=== PATIENT | female | born 1990 | race Caucasian/White ===

== ENCOUNTER 2018-08-11 02:30 | Emergency (ER) | payer BC, OTHER ==
--- NOTE | 2018-08-11 02:39 | EDPHY ---
H & P Time Seen by Provider: 08/11/18 02:38 HPI/ROS: HPI CHIEF COMPLAINT: Right Flank Pain, Sudden in onset, vomiting. HISTORY OF PRESENT ILLNESS: 27-year-old female, otherwise healthy without any significant medical history presents emergency room with right flank pain that woke her up to sleep around 2:00 a.m. Or 45s min ago. She vomited multiple times she describes pain as sharp stabbing right flank radiating to her right abdomen. She denies any chest pain or shortness of breath. Denies diarrhea. States she vomited nonbilious nonbloody approximately 4-5 times. Describes the pain as sharp stabbing. Currently 10/05. Patient denies history of this. Denies being . States she had a cheeseburger around 7:00 p.m. last night. Patient denies fever, chest pain or sob, denies diarrhea. Past Medical History:Denies Past Surgical History: Denies Social History: Smokes Tobacco, or Drugs, occasional Alcohol use. Works for [employer]. Family History:non Contributory. ROS REVIEW OF SYSTEMS: 10 Systems were reviewed and negative with the exception of the elements mentioned in the history of present illness. Exam Constitutional triage nursing summary reviewed, vital signs reviewed, awake/ alert. Eyes normal conjunctivae and sclera, EOMI, PERRLA. HENT normal inspection, atraumatic, moist mucus membranes, no epistaxis, neck supple/ no meningismus, no raccoon eyes. Respiratory clear to auscultation bilaterally, normal breath sounds, no respiratory distress, no wheezing. Cardiovascular rate normal, regular rhythm, no murmur, no edema, distal pulses normal. Gastrointestinal mild ttp right flank on exam, and RLQ pain, no rebound, no guarding, normal bowel sounds, no distension, no pulsatile mass. Genitourinary mild ttp right sided cva pain on exam. Musculoskeletal no midline vertebral tenderness, full range of motion, no calf swelling, no tenderness of extremities, no meningismus, good pulses, neurovascularly intact. Skin pink, warm, & dry, no rash, skin atraumatic. Neurologic awake, alert and oriented x 3, AAOx3, moves all 4 extremities equally, motor intact, sensory intact, CN II-XII intact, normal cerebellar, normal vision, normal speech. Psychiatric normal mood/affect. Heme/Lymph/Immune no lymphadenopathy. Differential Diagnosis: Differential diagnosis includes but is not limited to and in no particular order: Bowel obstruction, appendicitis, gallbladder disease, diverticulitis, colitis, enteritis, perforated viscus, gastritis, GERD , esophagitis, urinary tract infection, pyelonephritis, kidney stones Medical Decision Making: Plan for this patient IV establishment IV fluid bolus , IV Toradol 15 mg for pain control, basic labs including CBC, CMP, check urinalysis, urine , CT scan abdomen pelvis with IV contrast. Re-evaluation: 0407AM: Patient re-evaluated this time pain is currently 2/10 [address]. Resting comfortably. CT scan results obtained, this was faxed me it [facility] at 3:57 a.m.. This shows significant gallbladder distension. Mild intrahepatic ductal prominence. Moderate colonic stool throughout correlate for constipation Additionally there is a 5 mm right lower lobe lung nodule. Given the patient has gallbladder distension will proceed with right upper quadrant ultrasound. 4:08 a.m. Plan for 2nd L fluid, ultrasound gallbladder, lipase. 0541AM: Ultrasound obtained of the right upper quadrant due to distended gallbladder seen on CT scan this shows unremarkable right upper quadrant ultrasound. Specifically the gallbladder is moderately distended no shadowing stones or evidence of inflammation this is a negative sonographic Barnett sign common bile duct measures 5 mm in width. Faxed me by [facility] 5:32 a.m.. Labs reviewed. Lipase normal CMP ok CBC ok UA dip negative Urine preg negative 0542AM: Patient re-evaluated this time resting comfortably no abdominal pain. CT scan did show constipation this could be a cause of her abdominal pain. Additionally pulmonary lung nodule discussed with the patient she should follow up with her primary care doctor. Given that she smokes, Recommend close follow up. She understands this. I do recommend refrain from eating spicy fatty greasy foods. The next 2 weeks. Additionally MiraLax for constipation. Additionally we discussed return precautions return to the emergency room if there is worsening abdominal pain, fever, vomiting. She is comfortable this plan. Source: Patient - Medical/Surgical History Hx Asthma: No Hx Chronic Respiratory Disease: No Hx Diabetes: No Hx Cardiac Disease: No Hx Renal Disease: No Hx Cirrhosis: No Hx Alcoholism: No Hx HIV/AIDS: No Hx Splenectomy or Spleen Trauma: No Other PMH: No surgeries [facility] PCP [facility]. No Flu Constitutional: Initial Vital Signs Temperature (C) 36.6 C 08/11/18 02:39 Heart Rate 90 08/11/18 02:39 Respiratory Rate 18 08/11/18 02:39 Blood Pressure 146/94 H 08/11/18 02:39 O2 Sat (%) 92 08/11/18 02:39 O2 Delivery Mode Room Air Allergies/Adverse Reactions: No Known Allergies Allergy (Verified 08/11/18 02:41) Home Medications: Medication Instructions Recorded 08/11/18 Medical Decision Making - Data Points Medications Given: Discontinued Medications Sodium Chloride (Ns) 1,000 mls @ 0 mls/hr IV ONCE ONE PRN Reason: Wide Open Stop: 08/11/18 02:45 Last Admin: 08/11/18 02:54 Dose: 1,000 mls Sodium Chloride (Ns) 1,000 mls @ 0 mls/hr IV ONCE ONE PRN Reason: Wide Open Stop: 08/11/18 04:07 Last Admin: 08/11/18 04:15 Dose: 1,000 mls Ketorolac Tromethamine (Toradol) 15 mg IVP EDNOW ONE Stop: 08/11/18 02:45 Last Admin: 08/11/18 02:51 Dose: 15 mg Point of Care Test Results: CBC CBC Collection Date 08/11/18 CBC Collection Time 02:42 WBC 5.52 RBC 4.53 HGB 15.0 HCT 42.4 PLT 305 Neut # 2.70 Neut 48.8 LYMPH # 2.25 LYMPH 40.8 MCV 93.6 Chemistry 08/11/18 02:45 POC Sodium 145 mEq/L mEq/L (135-145) POC Potassium 4.1 mEq/L mEq/L (3.3-5.0) POC Chloride 107.0 mEq/L mEq/L (97-110) POC Total CO2 25 mEq/L mEq/L (22-31) POC BUN 17 mg/dL mg/dL (7-23) POC Creatinine 0.7 mg/dL mg/dL (0.6-1.0) POC Glucose 103 mg/dL H mg/dL (70-100) POC Calcium 9.6 mg/dL mg/dL (8.5-10.4) POC Total Bilirubin 0.7 mg/dL mg/dL (0.1-1.4) POC AST 74 IU/L H IU/L (14-46) POC ALT 43 IU/L IU/L (9-52) POC Alk Phosphatase 112 IU/L IU/L (38-126) POC Total Protein 7.2 g/dL g/dL (6.3-8.2) POC Albumin 3.7 g/dL g/dL (3.5-5.0) Urine Collection Date 08/11/18 Collection Time 03:20 HCG Results Negative Urine Dip Collection Date 08/11/18 Collection Time 03:20 Specific [place] (1.002-1.030) 1.020 PH (5.0-7.5) 6.0 Leukocytes (Negative) Negative Nitrites (Negative) Negative Protein (Negative) Negative Glucose (Negative) Negative Ketones (Negative) Negative Urobilnogen (0.2-1.0 EU) 0.2 Bilirubin (Negative) Negative Blood (Negative) Negative Departure - Departure Disposition: Home, Routine, Self-Care Clinical Impression: Abdominal pain Condition: Good Instructions: Constipation (ED), Acute Abdominal Pain (ED), Pulmonary Nodules ( ED) Additional Instructions: 1. [place] diet no spicy fatty greasy foods. 2. Return to the emergency room if there is worsening abdominal pain, fever, vomiting 3. Follow up with her primary care doctor about your lung nodule. (especially since you smoke), Recommend close follow up with your doctor. 4. rest 5. Increase your fruits and veggies. 6. Miralax over the counter for constipation. 7. Refrain from alcohol. Referrals: Patient,NotPresent [Primary Care Provider] - As per Instructions [facility],. [Clinic] - As per Instructions Stand Alone Forms: Parent/Guardian Work Excuse
[2018-08-11] MEDS ORDERED: KETOROLAC 15 MG/1 ML SDV IVP ONE (02:44)
[2018-08-11] MEDS ORDERED: NS 1,000 ML IV ONE ×2 (02:44→04:06)
[2018-08-11] MEDS ORDERED: IOPAMIDOL (ISOVUE-300) 100 ML BTL ONE (02:56)
[2018-08-11 06:08] VITALS: BP 127/79
== END 2018-08-11 06:06 | disposition home or self-care (01) ==
LOC: CED 02:30
DX: R10.9 Unspecified abdominal pain (principal); R11.10 Vomiting, unspecified
CPT/HCPCS: 74177-PO; 76705-PO; 80053-ER; 81025-ER; 85025-QW-ER; 96361-ER; 96374-ER; 99285-ER; J1885; Q9967